=== PATIENT | female | born 1980 ===

== ENCOUNTER 2019-10-21 08:55 | Outpatient (CLI) | payer OTHER, SELFPAY ==
--- NOTE | 2019-11-04 15:24 | SLEEP_ITS ---
DATE OF STUDY: 10/21/2019 REASON FOR THE STUDY: Primary central sleep apnea. HISTORY: This patient is a 39-year-old female, 71 inches tall, weighing 280 pounds with a body mass index of 39. She was recently evaluated for asthma and was found to have excessive daytime sleepiness. She had a home sleep study on August 20, 2019, which showed probable Lito-Self respirations with an episode in the first half of the night, lasting half an hour. She desaturated to 81%. She returns at this time for a definitive study. Her sleep-related complaints include constantly snoring and it is loud enough that others complain about it. She rarely has trouble sleeping with a cold. She does not gasp for breath at night. She rarely sweats excessively at night. She does not notice her heart pounding or beating irregularly at night. She frequently falls asleep during the day, but not while driving. She does not have loss of muscle tone with strong emotion. She does not feel paralyzed on waking or falling asleep and she does occasionally have vivid dreamlike scenes upon awakening or falling asleep. She is never afraid to go to sleep. She does not have nightmares. She does have daytime difficulties due to excessive sleepiness. She does not kick at night. MEDICAL COMORBIDITIES: Asthma, nasal allergies, thyroid dysfunction, shortness of breath, diabetes mellitus. MEDICATIONS: 1. Humalog insulin pump. 2. Zyrtec 10 mg a day. 3. Albuterol HFA p.r.n. shortness of breath. 4. Estradiol 2 mg a day. 5. Levothyroxine 25 mcg daily. 6. Singulair 10 mg a day. 7. Symbicort 160/4.5 two puffs twice a day. 8. Vitamin C 1000 units daily. HABITS: Never smoked tobacco. Caffeine, 1 to 2 cups per day. No alcohol. DESCRIPTION OF THE STUDY: On the Norman Sleepiness Scale, her score is 9. This was conducted as a full night basic nocturnal polysomnogram using the [employer] multiple channel system including EOG, EEG, submental EMG, EKG, nasal and oral airflow using thermistors and nasal pressure sensors, chest and abdominal belts, body position data and pulse oximetry. This study was scored using [facility] guidelines. Duration of the study was 401.8 minutes. Sleep time was 385.6 minutes. Sleep efficiency was 96%. Sleep latency was 8.7 minutes. REM latency was 85 minute. She spent 1.9% of the study awake after sleep onset, 7.5 minutes. Sleep architecture showed 7.8% stage 1 sleep, 58.4% stage 2 sleep, 7.9% stage 3 sleep and 24% stage REM. None of this study was supine. She had 3 relatively dense REM episodes and sleep was fairly well consolidated. The apnea-hypopnea index was 2.5. The obstructive index is 2.2 and the central index is 0.3. Unfortunately, there was no supine REM. The patient had 9 obstructive hypopneas in non-supine REM for an index of 5.7. She had 2 central apneas and 5 obstructive hypopneas in non-supine non-REM for an index of 1.4. The non-supine index was 2.5. Lowest desaturation was 89%. Mean saturation was 94.7%. The patient spent no time below 88%. There were 16 desaturations of 4% or greater for an index of 2.4. AROUSALS: 90 arousals for an index of 13.4. There was 1 apnea for an index of 0.1; 2 hypopneas for an index of 0.3; 52 snores for an index of 7.8; 17 spontaneous for an index of 2.5, and 18 limb movements for an index of 2.7. LIMB MOVEMENTS: 41 isolated limb movements for an index of 6.4. SNORING: The patient had moderate snoring throughout this study, 4659 episodes. EKG: Sinus rhythm, mean heart rate 72. This was requested as a split night, but she did not meet criteria. IMPRESSION: This basic nocturnal polysomnogram was performed due to concerns relating to Lito-Self respirations on a home sleep test. There is no evidence of significant Lito-
== END 2019-10-21 08:56 | disposition home or self-care (01) ==
LOC: ANHCSM 08:56
PROVIDERS: Visit Provider Internal Medicine Critical Care Medicine
DX: G47.31 Primary central sleep apnea (principal)
CPT/HCPCS: 95810